=== PATIENT | male | born 1940 | race Caucasian/White ===

== ENCOUNTER 2019-01-09 07:21 | Day surgery (SDC) | payer OTHER ==
[2019-01-04 10:49] LABS: EOSINOPHILS # (AUTO) 0.3 X10'3 (0-0.9); HEMOGLOBIN 14.3 g/dl (14.0-17.9); MEAN CORPUSCULAR VOLUME 93.5 FL (78-98)
[2019-01-04 10:51] LABS: BASOPHILS # (AUTO) 0.1 X10'3 (0-0.2); BASOPHILS % (AUTO) 0.7 % (0-1); EOSINOPHILS % (AUTO) 2.2 % (0-6); LYMPHOCYTES # (AUTO) 4.1 X10'3 (1.1-4.8); LYMPHOCYTES % (AUTO) 34.3 % (21-51); MEAN CORPUSCULAR HEMOGLOBIN 31.9 PG (27.0-31.0); MEAN CORPUSCULAR HGB CONC 34.1 g/dL (33.0-36.5); MEAN PLATELET VOLUME 9.1 FL (7.4-10.4); MONOCYTES % (AUTO) 8.6 % (2-12); NEUTROPHILS # (AUTO) 6.4 X10'3 (1.8-7.7); NEUTROPHILS % (AUTO) 54.2 % (42-75); PLATELET COUNT 251 X10'3 (140-440); RED BLOOD COUNT 4.49 X10'6 (4.70-6.10); RED CELL DISTRIBUTION WIDTH 12.9 % (11.5-14.5); WHITE BLOOD COUNT 11.9 X10'3 (4.5-11.0)
[2019-01-04 11:11] LABS: ALANINE AMINOTRANSFERASE 29 U/L (12-78); ALBUMIN 3.8 G/DL (3.4-5.0); ALBUMIN/GLOBULIN RATIO 1.1 (1.1-1.5); ALKALINE PHOSPHATASE 76 IU/L (46-116); ANION GAP 8 (8-16); ASPARTATE AMINO TRANSFERASE 16 U/L (10-37); BILIRUBIN,TOTAL 0.5 MG/DL (0.1-1.0); BLOOD UREA NITROGEN 22 MG/DL (7-18); BUN/CREATININE RATIO 16.4 (5.4-32.0); CALCIUM 8.9 MG/DL (8.5-10.1); CHLORIDE 107 MMOL/L (99-107); CREATININE 1.34 MG/DL (0.60-1.10); GLUCOSE 91 MG/DL (70-104); POTASSIUM 4.1 MMOL/L (3.5-5.1); SODIUM 142 MMOL/L (135-145); TOTAL CARBON DIOXIDE 26.7 MMOL/L (24-32); TOTAL PROTEIN 7.4 G/DL (6.4-8.2); eGFR 52 ML/MIN
[2019-01-04 11:14] LABS: PARTIAL THROMBOPLASTIN TIME 28 SECONDS (22-32)
[2019-01-09] VITALS (12 sets, daily range): BP systolic 125–164; BP diastolic 64–95
[~2019-01-09] VITALS: Ht 182.9 cm; Wt 94.3 kg
[~2019-01-09 07:21] MED LIST: ACET-3067 PO; ATEN-169 PO; ATOR20TA66 PO; FLO0.4C PO; LEVO100T PO; LYR25C PO; PRAV20TA4 PO
[2019-01-09] MEDS ORDERED: nitroGLYCERIN 0.4mg SUBLingual tab SL PRN (07:55)
[2019-01-09] MEDS ORDERED: diphenhydrAMINE 25mg capsule PO PRN (08:00)
[2019-01-09] MEDS ORDERED: normal saline 1,000 ML IV SCH (08:00)
[2019-01-09] MEDS ORDERED: LEVO137T2 PO (08:05)
[2019-01-09] MEDS ORDERED: ASPI81TA30 PO (08:05)
[2019-01-09] MEDS ORDERED: ATOR80TA PO (08:05)
[2019-01-09] MEDS ORDERED: OXYC5CAP19 PO (08:05)
[2019-01-09] MEDS ORDERED: LIDOcaine 1% (10mg/ml)w/preservative injection 20ml MDV ONE (10:02)
[2019-01-09] MEDS ORDERED: fentaNYL/PF 50MCG/1 ML 2ML syringe ONE (10:02)
[2019-01-09] MEDS ORDERED: iohexol 350 MG/ML 50ML vial IV ONE ×3 (10:02→10:45)
[2019-01-09] MEDS ORDERED: midazolam 2 mg/2 ml injection ONE ×2 (10:02→10:32)
[2019-01-09] MEDS ORDERED: iohexol 350MG/ML 100ml bottle IV ONE (10:03)
[2019-01-09] MEDS ORDERED: ondansetron/PF 4mg/2ml inj IV PRN (11:45)
[2019-01-09] MEDS ORDERED: HYDROcodone/acetaminophen 5mg/325mg tablet PO PRN (11:45)
[2019-01-09] MEDS ORDERED: proCHLORperazine 10 MG/2 ml inj IV PRN (11:50)
[2019-01-09] MEDS ORDERED: OXAZEpam 15mg capsule PO PRN (11:50)
[2019-01-09] MEDS ORDERED: HYDROcodone/acetaminophen 10/325mg tab PO PRN (11:50)
== END 2019-01-09 17:30 | disposition home or self-care (01) ==
LOC: SSTAY O 07:21
PROVIDERS: ATTEND Internal Medicine Cardiovascular Disease
DX: T82.868A Thrombosis due to vascular prosthetic devices, implants and grafts, initial encounter (principal); I25.10 Atherosclerotic heart disease of native coronary artery without angina pectoris; I10 Essential (primary) hypertension; E78.5 Hyperlipidemia, unspecified; J44.9 Chronic obstructive pulmonary disease, unspecified; M41.80 Other forms of scoliosis, site unspecified; Z95.1 Presence of aortocoronary bypass graft; Z87.891 Personal history of nicotine dependence; Z86.73 Personal history of transient ischemic attack (TIA), and cerebral infarction without residual deficits; Z79.01 Long term (current) use of anticoagulants; Z79.899 Other long term (current) drug therapy; Y83.8 Other surgical procedures as the cause of abnormal reaction of the patient, or of later complication, without mention of misadventure at the time of the procedure; Y92.89 Other specified places as the place of occurrence of the external cause
CPT/HCPCS: 36415; 71046; 80053; 85025; 85610; 85730; 93005; 93459; 99152; 99153; C1769; J1644; J2001; J2250; J3010; J7030; Q0163; Q9967; A4620; A6258; C1760

== ENCOUNTER 2019-02-26 05:14 | Inpatient (IN) | payer OTHER ==
[2019-02-19 11:52] LABS: BASOPHILS # (AUTO) 0.2 X10'3 (0-0.2); BASOPHILS % (AUTO) 1.3 % (0-1); EOSINOPHILS # (AUTO) 0.2 X10'3 (0-0.9); EOSINOPHILS % (AUTO) 1.9 % (0-6); LYMPHOCYTES # (AUTO) 3.4 X10'3 (1.1-4.8); LYMPHOCYTES % (AUTO) 28.3 % (21-51); MEAN CORPUSCULAR HEMOGLOBIN 31.8 PG (27.0-31.0); MEAN CORPUSCULAR HGB CONC 33.5 g/dL (33.0-36.5); MEAN CORPUSCULAR VOLUME 94.8 FL (78-98); MEAN PLATELET VOLUME 9.8 FL (7.4-10.4); MONOCYTES # (AUTO) 0.9 X10'3 (0-0.9); MONOCYTES % (AUTO) 7.1 % (2-12); NEUTROPHILS # (AUTO) 7.3 X10'3 (1.8-7.7); NEUTROPHILS % (AUTO) 61.4 % (42-75); PRE OP HEMATOCRIT 40.9 % (42.0-52.0); PRE OP HEMOGLOBIN 13.7 g/dL (14.0-17.9); PRE OP PLATELET COUNT 259 X10'3 (140-440); RED BLOOD COUNT 4.32 X10'6 (4.70-6.10); RED CELL DISTRIBUTION WIDTH 13.9 % (11.5-14.5)
[2019-02-19 12:00] LABS: PRE OP PROTIME 10.5 SECONDS (9.0-12.0)
[2019-02-19 12:19] LABS: ALKALINE PHOSPHATASE 77 IU/L (46-116); BLOOD UREA NITROGEN 19 MG/DL (7-18); BUN/CREATININE RATIO 12.9 (5.4-32.0); CALCIUM 9.5 MG/DL (8.5-10.1); CHLORIDE 104 MMOL/L (99-107); CREATININE 1.47 MG/DL (0.60-1.10); PRE OP ALT 33 U/L (30-65); PRE OP ANION GAP 8 (8-16); PRE OP AST 28 U/L (10-37); PRE OP BILIRUB, TOTAL 0.7 MG/DL (0.0-1.0); PRE OP GLUCOSE 89 MG/DL (70-104); PRE OP POTASSIUM 4.1 MMOL/L (3.4-5.1); PRE OP SODIUM 140 MMOL/L (135-145); TOTAL CARBON DIOXIDE 28.2 MMOL/L (24-32); TOTAL PROTEIN 7.9 G/DL (6.4-8.2); eGFR 47 ML/MIN
[~2019-02-26] VITALS: Ht 180.3 cm; Wt 94.2 kg
[2019-02-26] VITALS (19 sets, daily range): BP systolic 111–148; BP diastolic 57–84
[~2019-02-26 05:14] MED LIST changes: -ACET-3067 PO; +ASPI81TA30 PO; -ATEN-169 PO; -ATOR20TA66 PO; +ATOR80TA PO; -LEVO100T PO; +LEVO137T2 PO; +LISI-600 PO; +OXYC5CAP19 PO; -PRAV20TA4 PO; +ringers solution, lacted 1,000 ML IV SCH
[2019-02-26] MEDS ORDERED: LIDOcaine 1% (10mg/ml) 2ml vial ONE (05:25)
[2019-02-26] MEDS ORDERED: metoclopramide 5 mg/ml inj IV ONE (05:30)
[2019-02-26] MEDS ORDERED: oxyCODONE SR 10mg (sust. release) tab -2 tabs (20mg) PO ONE (05:30)
[2019-02-26] MEDS ORDERED: cefazolin/dext.iso 2gm/50ml 50 ML IV ONE (05:30)
[2019-02-26] MEDS ORDERED: gabapentin 300mg capsule PO ONE (05:30)
[2019-02-26] MEDS ORDERED: VANCOMYCIN INJ 1000 MG in NORMAL SALINE 250ml IV.SOLN IV ONE (05:30)
[2019-02-26] MEDS ORDERED: tranexamic acid inj. 1,000 MG in normal saline 100 ML IV ONE (05:30)
[2019-02-26] MEDS ORDERED: vancomycin inj 1,500 MG in normal saline 300ml IV soln IV ONE (05:30)
[2019-02-26] MEDS ORDERED: acetaminophen 325mg tablet PO ONE (05:30)
[2019-02-26] MEDS ORDERED: famotidine 20mg tablet PO ONE (05:30)
[2019-02-26] MEDS ORDERED: celeCOXIB 100mg capsule PO ONE ×2 (05:30)
[2019-02-26] MEDS: potassium cl 20mEq in 1/2 NS 1,000 ML IV SCH ×3 (06:13→22:13)
[2019-02-26] MEDS ORDERED: bisacodyl 10mg suppository rectal RC PRN (06:15)
[2019-02-26] MEDS ORDERED: acetaminophen 325mg tablet PO PRN (06:15)
[2019-02-26] MEDS ORDERED: HYDROmorphone inj. 0.5 MG/0.5 ML DISP.SYRIN IV PRN (06:15)
[2019-02-26] MEDS ORDERED: HYDROcodone/acetaminophen 10/325mg tab PO PRN ×2 (06:15)
[2019-02-26] MEDS ORDERED: diphenhydrAMINE 25mg capsule PO PRN ×2 (06:15)
[2019-02-26] MEDS ORDERED: ondansetron/PF 4mg/2ml inj IV PRN ×3 (06:15→08:00)
[2019-02-26] MEDS ORDERED: HYDROmorphone 1 mg/ml syringe IV PRN (06:15)
[2019-02-26] MEDS ORDERED: magnesium hydroxide 30ml (MOM) UD suspension PO PRN (06:15)
[2019-02-26] MEDS ORDERED: ketorolac trometh. 30mg/ml inj. ONE (06:48)
[2019-02-26] MEDS ORDERED: epiNEPHrine 1 mg/ml inj ONE (06:49)
[2019-02-26] MEDS ORDERED: ROPIVAcaine 0.5% (5mg/ml) 30ml vial ONE ×2 (06:49→06:50)
[2019-02-26] MEDS ORDERED: vancomycin 1,000mg inj ONE (06:49)
[2019-02-26] MEDS ORDERED: cloNIDine hcl/PF 100mcg/ml inj ONE (06:49)
[2019-02-26] MEDS ORDERED: tetracaine 1% (10mg/ml) pres. free inj. ONE (07:02)
[2019-02-26] MEDS ORDERED: MIDAZolam 1mg/ml 10ml vial ONE (07:05)
[2019-02-26] MEDS ORDERED: fentaNYL/PF 50MCG/1 ML 2ML syringe ONE (07:05)
[2019-02-26] MEDS ORDERED: morphine /PF 1mg/ml 10ml inj. ONE (07:05)
[2019-02-26] MEDS ORDERED: LIDOcaine 2% (20mg/ml) 5ml vial ONE (07:22)
[2019-02-26] MEDS ORDERED: propofol inj 20 ML IV ONE (07:22)
[2019-02-26] MEDS ORDERED: ePHEDrine 50MG/ML INJ. ONE (07:32)
[2019-02-26] MEDS ORDERED: phenylephrine 10mg/ml inj. ONE (07:52)
[2019-02-26] MEDS ORDERED: ringers solution, lacted 1,000 ML IV SCH (07:58)
[2019-02-26] MEDS ORDERED: diphenhydrAMINE 50 mg/ml inj IV PRN (08:00)
[2019-02-26] MEDS: multivitamins, therapeutics tablet PO SCH (08:00)
[2019-02-26] MEDS: tamsulosin 0.4mg capsule PO SCH (08:00)
[2019-02-26] MEDS: pregabalin 25mg capsule PO SCH ×2 (08:00→20:06)
[2019-02-26] MEDS: levoTHYROXINE 112mcg tablet PO SCH (08:00)
[2019-02-26] MEDS ORDERED: morphine 4 MG/ML inj SYRINge IV PRN ×2 (08:00)
[2019-02-26] MEDS ORDERED: fentaNYL/PF 50MCG/1 ML 2ML syringe IV PRN ×2 (08:00)
[2019-02-26] MEDS: lisinopril 5mg tablet PO SCH (08:00)
[2019-02-26] MEDS ORDERED: labetalol 20mg/4ml (5mg/ml) syringe IV PRN (08:00)
[2019-02-26] MEDS ORDERED: enalaprilat dihydrate 2.5mg/2ml vial IV PRN (08:00)
[2019-02-26] MEDS: gabapentin 300mg capsule PO SCH ×3 (08:00→20:07)
[2019-02-26] MEDS: ascorbic acid 500mg tablet PO SCH ×2 (08:00→20:08)
[2019-02-26] MEDS: aspirin 325mg tablet PO SCH (08:30)
--- NOTE | 2019-02-26 08:45 | NUR ---
Received from OR via BED, accompanied by Anesthesiologist DR PIERRE and report given by Anesthesiolgist. PATIENT WAKING UP, DENIES PAIN, V/S WNL, NEUROVASCULAR CHECKS INTACT, TELMA DRESSING TO LEFT HIP CDI WITH LLE IN LEG BRACE, SCD ON, 28G RUE .
--- NOTE | 2019-02-26 08:45 | NUR ---
CORRECTION, 18G PIV RUE
--- NOTE | 2019-02-26 09:55 | NUR ---
PATIENT A&OX4, DENIES PAIN, V/S WNL, NEUROVASCULAR CHECKS INTACT, TELMA DRESSING TO LEFT HIP CDI WITH LLE IN LEG BRACE, SCD ON, 18G RUE . SENSATIONS T10, F/C DRAINING CLEAR YELLOW URINE. PATIENT TAKEN TO 4013A WITH ALL BELONGINGS AND HOOKED UP TO MONITORS IN ROOM AND REPORT GIVEN TO LABORATORY ENGINEER WHO HAS TAKEN OVER PATIENT CARE.
[2019-02-26] MEDS ORDERED: tranexamic acid inj. 1,000 MG in normal saline 100ml IV soln 100 ML IV ONE (13:00)
[2019-02-26] MEDS ORDERED: cefazolin/dext.iso 2gm/100ml 100 ML IV SCH (16:00)
[2019-02-26] MEDS: cefazolin/dext.iso 2gm/50ml 50 ML IV SCH ×2 (16:41→23:48)
--- NOTE | 2019-02-26 19:15 | NUR ---
Problems reprioritized. Patient report given, questions answered & plan of care reviewed with IGNACIO Lomas.
[2019-02-26] MEDS: sennosides 8.6mg tablet PO SCH (20:07)
[2019-02-26] MEDS: atorvastatin 20mg tablet PO SCH (20:08)
[2019-02-26] MEDS: oxyCODONE IR 5mg (immed. release) tablet PO PRN (20:45)
[2019-02-27] VITALS (7 sets, daily range): BP systolic 115–153; BP diastolic 54–71
[2019-02-27 04:45] LABS: BASOPHILS # (AUTO) 0.1 X10'3 (0-0.2); BASOPHILS % (AUTO) 0.9 % (0-1); EOSINOPHILS # (AUTO) 0.3 X10'3 (0-0.9); EOSINOPHILS % (AUTO) 2.5 % (0-6); HEMOGLOBIN 11.7 g/dl (14.0-17.9); LYMPHOCYTES # (AUTO) 2.9 X10'3 (1.1-4.8); LYMPHOCYTES % (AUTO) 24.7 % (21-51); MEAN CORPUSCULAR HEMOGLOBIN 32.1 PG (27.0-31.0); MEAN CORPUSCULAR HGB CONC 33.4 g/dL (33.0-36.5); MEAN PLATELET VOLUME 9.2 FL (7.4-10.4); MONOCYTES # (AUTO) 1.3 X10'3 (0-0.9); MONOCYTES % (AUTO) 10.8 % (2-12); NEUTROPHILS # (AUTO) 7.1 X10'3 (1.8-7.7); NEUTROPHILS % (AUTO) 61.1 % (42-75); PLATELET COUNT 234 X10'3 (140-440); RED BLOOD COUNT 3.65 X10'6 (4.70-6.10); RED CELL DISTRIBUTION WIDTH 13.6 % (11.5-14.5); WHITE BLOOD COUNT 11.6 X10'3 (4.5-11.0)
[2019-02-27 04:47] LABS: ANION GAP 9 (8-16); CHLORIDE 103 MMOL/L (99-107); POTASSIUM 4.6 MMOL/L (3.5-5.1); SODIUM 136 MMOL/L (135-145); TOTAL CARBON DIOXIDE 24.1 MMOL/L (24-32)
[2019-02-27] MEDS: oxyCODONE IR 5mg (immed. release) tablet PO PRN ×3 (05:32→16:27)
[2019-02-27] MEDS: potassium cl 20mEq in 1/2 NS 1,000 ML IV SCH ×2 (05:37→13:50)
--- NOTE | 2019-02-27 06:30 | NUR ---
Patient in room ORTHO 4013. I have received report from shadi PIERRE and had the opportunity to ask questions and assume patient care.
[2019-02-27] MEDS: levoTHYROXINE 112mcg tablet PO SCH (08:26)
[2019-02-27] MEDS: tamsulosin 0.4mg capsule PO SCH (08:26)
[2019-02-27] MEDS: pregabalin 25mg capsule PO SCH ×2 (08:26→19:55)
[2019-02-27] MEDS: levoTHYROXINE 25mcg tablet PO SCH (08:26)
[2019-02-27] MEDS: lisinopril 5mg tablet PO SCH (08:27)
[2019-02-27] MEDS: ascorbic acid 500mg tablet PO SCH ×2 (08:27→19:55)
[2019-02-27] MEDS: aspirin 325mg tablet PO SCH (08:27)
[2019-02-27] MEDS: multivitamins, therapeutics tablet PO SCH (08:27)
--- NOTE | 2019-02-27 08:35 | NUR ---
Student Medication Administration: For this medication-pass time frame, all medication were reviewed, dispensed, administered and documented per hospital policy by SN Blake [facility].
--- NOTE | 2019-02-27 12:10 | NUR ---
Student documentation: I have reviewed and agree with all interventions, assessments performed and documented by SN Blake [facility].
--- NOTE | 2019-02-27 18:21 | NUR ---
Student documentation: I have reviewed and agree with all interventions, assessments performed and documented by Blake ADAMS. Student Medication Administration: For this medication-pass time frame, all medication were reviewed, dispensed, administered and documented per hospital policy by Lino ADAMS. Report to Cesilia PIERRE
[2019-02-27] MEDS: sennosides 8.6mg tablet PO SCH (20:12)
[2019-02-27] MEDS: atorvastatin 20mg tablet PO SCH (20:13)
[2019-02-28 05:00] VITALS: BP 131/68
[2019-02-28] MEDS: oxyCODONE IR 5mg (immed. release) tablet PO PRN ×4 (05:21→17:03)
[2019-02-28 06:17] LABS: BASOPHILS # (AUTO) 0.1 X10'3 (0-0.2); BASOPHILS % (AUTO) 0.7 % (0-1); EOSINOPHILS # (AUTO) 0.2 X10'3 (0-0.9); EOSINOPHILS % (AUTO) 1.3 % (0-6); HEMATOCRIT 34.6 % (42.0-52.0); HEMOGLOBIN 11.8 g/dl (14.0-17.9); LYMPHOCYTES % (AUTO) 20.2 % (21-51); MEAN CORPUSCULAR HEMOGLOBIN 32.5 PG (27.0-31.0); MEAN CORPUSCULAR HGB CONC 34.2 g/dL (33.0-36.5); MEAN CORPUSCULAR VOLUME 94.9 FL (78-98); MEAN PLATELET VOLUME 9.2 FL (7.4-10.4); MONOCYTES # (AUTO) 1.8 X10'3 (0-0.9); MONOCYTES % (AUTO) 12.1 % (2-12); NEUTROPHILS # (AUTO) 9.8 X10'3 (1.8-7.7); NEUTROPHILS % (AUTO) 65.7 % (42-75); PLATELET COUNT 227 X10'3 (140-440); RED BLOOD COUNT 3.65 X10'6 (4.70-6.10); RED CELL DISTRIBUTION WIDTH 13.6 % (11.5-14.5); WHITE BLOOD COUNT 14.9 X10'3 (4.5-11.0)
--- NOTE | 2019-02-28 06:26 | NUR ---
Problems reprioritized. Patient report given, questions answered & plan of care reviewed with IGNACIO VALDEZ.
--- NOTE | 2019-02-28 06:41 | NUR ---
Patient in room ORTHO 4013. I have received report from Cesilia PIERRE and had the opportunity to ask questions and assume patient care.
[2019-02-28] MEDS: levoTHYROXINE 25mcg tablet PO SCH (08:38)
[2019-02-28] MEDS: pregabalin 25mg capsule PO SCH ×2 (08:38→20:02)
[2019-02-28] MEDS: levoTHYROXINE 112mcg tablet PO SCH (08:38)
[2019-02-28] MEDS: tamsulosin 0.4mg capsule PO SCH (08:39)
[2019-02-28] MEDS: lisinopril 5mg tablet PO SCH (08:39)
[2019-02-28] MEDS: multivitamins, therapeutics tablet PO SCH (08:39)
[2019-02-28] MEDS: ascorbic acid 500mg tablet PO SCH ×2 (08:39→20:02)
[2019-02-28] MEDS: aspirin 325mg tablet PO SCH (08:39)
[2019-02-28 10:00] VITALS: BP 126/58
--- NOTE | 2019-02-28 14:11 | NUR ---
Joint replacement consult: Pt seen by RD for written/verbal high protein ed w/ RD contact information provided. Pt reports dyslexia trouble reading and has hearing issue since no hearing aids in currently. Pt reports lower appetite though PO 50-75% avg meals. LBM 02/26 noted but RN shares pt has not had BM since admit. Pt to receive ensure pudding BIDLD and power pudding at dinner tonight; dietary notified. Will continue to monitor. Addendum: 02/28/19 at [address] Amended: Links added.
[2019-02-28 18:00] VITALS: BP 127/67
--- NOTE | 2019-02-28 18:22 | NUR ---
Problems reprioritized. Patient report given, questions answered & plan of care reviewed with Ann BIANCHI.
[2019-02-28] MEDS: sennosides 8.6mg tablet PO SCH (20:02)
[2019-02-28] MEDS: atorvastatin 20mg tablet PO SCH (20:02)
[2019-02-28 22:00] VITALS: BP 125/66
[2019-03-01 05:20] LABS: BASOPHILS # (AUTO) 0.1 X10'3 (0-0.2); BASOPHILS % (AUTO) 0.7 % (0-1); EOSINOPHILS # (AUTO) 0.2 X10'3 (0-0.9); EOSINOPHILS % (AUTO) 1.6 % (0-6); HEMATOCRIT 32.7 % (42.0-52.0); HEMOGLOBIN 11.3 g/dl (14.0-17.9); LYMPHOCYTES # (AUTO) 2.9 X10'3 (1.1-4.8); LYMPHOCYTES % (AUTO) 19.8 % (21-51); MEAN CORPUSCULAR HEMOGLOBIN 32.9 PG (27.0-31.0); MEAN CORPUSCULAR HGB CONC 34.5 g/dL (33.0-36.5); MEAN CORPUSCULAR VOLUME 95.3 FL (78-98); MEAN PLATELET VOLUME 8.7 FL (7.4-10.4); MONOCYTES # (AUTO) 1.5 X10'3 (0-0.9); MONOCYTES % (AUTO) 10.4 % (2-12); NEUTROPHILS # (AUTO) 9.8 X10'3 (1.8-7.7); NEUTROPHILS % (AUTO) 67.5 % (42-75); PLATELET COUNT 238 X10'3 (140-440); RED BLOOD COUNT 3.43 X10'6 (4.70-6.10); RED CELL DISTRIBUTION WIDTH 13.3 % (11.5-14.5); WHITE BLOOD COUNT 14.5 X10'3 (4.5-11.0)
[2019-03-01 06:00] VITALS: BP 115/58
--- NOTE | 2019-03-01 06:13 | NUR ---
Problems reprioritized. Patient report given, questions answered & plan of care reviewed with IGNACIO Cheng.
--- NOTE | 2019-03-01 06:42 | NUR ---
Patient in room ORTHO 4013. I have received report from Ann Johnson RN and had the opportunity to ask questions and assume patient care.
[2019-03-01] MEDS: levoTHYROXINE 25mcg tablet PO SCH (07:08)
[2019-03-01] MEDS: levoTHYROXINE 112mcg tablet PO SCH (07:08)
[2019-03-01] MEDS: ascorbic acid 500mg tablet PO SCH (07:08)
[2019-03-01] MEDS: aspirin 325mg tablet PO SCH (07:08)
[2019-03-01] MEDS: multivitamins, therapeutics tablet PO SCH (07:08)
[2019-03-01] MEDS: lisinopril 5mg tablet PO SCH (07:08)
[2019-03-01] MEDS: tamsulosin 0.4mg capsule PO SCH (07:08)
[2019-03-01] MEDS: pregabalin 25mg capsule PO SCH (07:08)
[2019-03-01] MEDS: oxyCODONE IR 5mg (immed. release) tablet PO PRN (07:09)
[2019-03-01] MEDS ORDERED: docusate sod 100mg capsule PO SCH (08:00)
[2019-03-01 10:00] VITALS: BP 99/55
--- NOTE | 2019-03-01 10:50 | NUR ---
Safe DC. left with radha cargo. all items with patent.
== END 2019-03-01 11:52 | DRG 470 ==
LOC: PAS IN 05:14 → EDSTATUS 07:30 → ORTHO 4S 10:00
PROVIDERS: ADMIT Orthopaedic Surgery; ATTEND Orthopaedic Surgery
PROC: 0SRB06A Replacement of Left Hip Joint with Oxidized Zirconium on Polyethylene Synthetic Substitute, Uncemented, Open Approach (ICD-10-PCS; principal; 2019-02-26 07:05)
DX: M16.12 Unilateral primary osteoarthritis, left hip (principal); D62 Acute posthemorrhagic anemia; I69.359 Hemiplegia and hemiparesis following cerebral infarction affecting unspecified side; Z96.641 Presence of right artificial hip joint; F32.9 Major depressive disorder, single episode, unspecified; N18.3 Chronic kidney disease, stage 3 (moderate); I25.10 Atherosclerotic heart disease of native coronary artery without angina pectoris; N40.0 Benign prostatic hyperplasia without lower urinary tract symptoms; E78.5 Hyperlipidemia, unspecified; E03.9 Hypothyroidism, unspecified; I12.9 Hypertensive chronic kidney disease with stage 1 through stage 4 chronic kidney disease, or unspecified chronic kidney disease; I25.2 Old myocardial infarction; Z79.82 Long term (current) use of aspirin; Z95.1 Presence of aortocoronary bypass graft; Z98.1 Arthrodesis status; Z85.46 Personal history of malignant neoplasm of prostate; Z79.899 Other long term (current) drug therapy
CPT/HCPCS: 36415; 72170; 80051; 80053; 82948; 84443; 85025; 85610; 85730; 86885; 86900; 86901; 87081; 97110; 97116; 97161; 97530; A4615; A7000; C1758; C1776; G0378; J0171; J0735; J1170; J1885; J2001; J2250; J2270; J2370; J2704; J2765; J2795; J3010; J3370; J3480; J7120

== ENCOUNTER 2019-04-11 17:03 | Emergency (ER) | payer MEDICARE, MEDICAID ==
[~2019-04-11] VITALS: Ht 182.9 cm; Wt 100.0 kg
[~2019-04-11 17:03] MED LIST changes: -ringers solution, lacted 1,000 ML IV SCH
[2019-04-11] MEDS ORDERED: morphine 4 MG/ML inj SYRINge IV PRN (17:30)
[2019-04-11] MEDS ORDERED: ondansetron/PF 4mg/2ml inj IV ONE (17:30)
[2019-04-11] MEDS ORDERED: normal saline 1000ML IV soln IVB ONE (17:30)
--- NOTE | 2019-04-11 17:50 | NUR ---
Attempted IV access to the right wrist without success, IV cath tip intact, dressing applied and pressure held for a few minutes. Pt will have another nurse attempt IV access and lab draw.
[2019-04-11 18:16] LABS: BASOPHILS # (AUTO) 0.1 X10'3 (0-0.2); BASOPHILS % (AUTO) 0.9 % (0-1); EOSINOPHILS # (AUTO) 0.1 X10'3 (0-0.9); EOSINOPHILS % (AUTO) 1.2 % (0-6); HEMATOCRIT 39.1 % (42.0-52.0); HEMOGLOBIN 13.2 g/dl (14.0-17.9); LYMPHOCYTES # (AUTO) 1.6 X10'3 (1.1-4.8); MEAN CORPUSCULAR HEMOGLOBIN 31.9 PG (27.0-31.0); MEAN CORPUSCULAR HGB CONC 33.7 g/dL (33.0-36.5); MEAN CORPUSCULAR VOLUME 94.8 FL (78-98); MONOCYTES # (AUTO) 0.9 X10'3 (0-0.9); MONOCYTES % (AUTO) 7.9 % (2-12); NEUTROPHILS # (AUTO) 8.8 X10'3 (1.8-7.7); PLATELET COUNT 221 X10'3 (140-440); RED BLOOD COUNT 4.12 X10'6 (4.70-6.10); WHITE BLOOD COUNT 11.6 X10'3 (4.5-11.0)
[2019-04-11 18:29] LABS: ALANINE AMINOTRANSFERASE 28 U/L (12-78); ALBUMIN 3.7 G/DL (3.4-5.0); ALBUMIN/GLOBULIN RATIO 1.1 (1.1-1.5); ALKALINE PHOSPHATASE 84 IU/L (46-116); ANION GAP 11 (8-16); ASPARTATE AMINO TRANSFERASE 19 U/L (10-37); BILIRUBIN,TOTAL 0.6 MG/DL (0.1-1.0); BLOOD UREA NITROGEN 16 MG/DL (7-18); BUN/CREATININE RATIO 13.2 (5.4-32.0); CALCIUM 8.4 MG/DL (8.5-10.1); CHLORIDE 105 MMOL/L (99-107); CREATININE 1.21 MG/DL (0.60-1.10); GLUCOSE 99 MG/DL (70-104); LIPASE 167 U/L (73-393); POTASSIUM 3.9 MMOL/L (3.5-5.1); SODIUM 138 MMOL/L (135-145); TOTAL CARBON DIOXIDE 21.9 MMOL/L (24-32); eGFR 58 ML/MIN
--- NOTE | 2019-04-11 18:47 | NUR ---
ALDA FROM [facility] CALLED FOR REPORT ON PT. .
--- NOTE | 2019-04-11 19:25 | NUR ---
PATIENT TO CT SCAN
[2019-04-11 19:36] LABS: CLARITY,URINE CLEAR (Clear); COLOR,URINE YELLOW (Yellow); GLUCOSE, URINE NEGATIVE (Neg); KETONES,URINE NEGATIVE (Neg); LEUKOCYTE ESTERASE ,URINE NEGATIVE (Neg); NITRITES, URINE NEGATIVE (Neg); OCCULT BLOOD,URINE NEGATIVE (Neg); PH,URINE 5.5 (4.8-8.0); PROTEIN,URINE NEGATIVE (Neg); UROBILINOGEN,URINE 0.2 E.U/dL (0.2-1.0)
[2019-04-11 19:37] LABS: UA COLLECTION TYPE CLN CATCH MIDSTREAM
[2019-04-11 20:25] VITALS: BP 120/65
== END 2019-04-11 20:35 | disposition home or self-care (01) ==
LOC: ER 17:05
DX: R10.11 Right upper quadrant pain (principal); R11.0 Nausea; I25.10 Atherosclerotic heart disease of native coronary artery without angina pectoris; E78.00 Pure hypercholesterolemia, unspecified; I10 Essential (primary) hypertension; G47.30 Sleep apnea, unspecified; K21.9 Gastro-esophageal reflux disease without esophagitis; E03.9 Hypothyroidism, unspecified; G89.29 Other chronic pain; Z98.890 Other specified postprocedural states; Z86.14 Personal history of Methicillin resistant Staphylococcus aureus infection; Z79.82 Long term (current) use of aspirin; Z79.899 Other long term (current) drug therapy
CPT/HCPCS: 36415; 74176; 76700; 80053; 81003; 83690; 85025; 96374; 99284; J2405; J7030

== ENCOUNTER 2022-12-20 11:09 | Outpatient (CLI) | payer MEDICARE, MEDICAID ==
[~2022-12-20 11:09] MED LIST changes: -LISI-600 PO; +LISI20TA28 PO
== END 2022-12-20 23:59 | disposition home or self-care (01) ==
LOC: RAD 11:09
PROVIDERS: ATTEND Family Medicine
DX: K59.00 Constipation, unspecified (principal); M47.816 Spondylosis without myelopathy or radiculopathy, lumbar region; R10.31 Right lower quadrant pain; Z96.643 Presence of artificial hip joint, bilateral
CPT/HCPCS: 74176

== ENCOUNTER 2024-01-11 09:10 | Outpatient (CLI) | payer MEDICARE, OTHER ==
[~2024-01-11 09:10] MED LIST changes: -OXYC5CAP19 PO; +OXYC5CAP22 PO
== END 2024-01-11 23:59 | disposition home or self-care (01) ==
LOC: RAD 09:10
PROVIDERS: ATTEND Family Medicine
DX: R13.10 Dysphagia, unspecified (principal)
CPT/HCPCS: 74230

== ENCOUNTER 2024-09-26 09:50 | Emergency (ER) | payer OTHER, MEDICARE, MEDICAID ==
[~2024-09-26] VITALS: Ht 180.3 cm; Wt 90.9 kg
[~2024-09-26 09:50] MED LIST changes: +ATOR-429 PO; -ATOR80TA PO; -FLO0.4C PO; +TAMS-55 PO
[2024-09-26 09:57] VITALS: TEMP 98
[2024-09-26 11:05] LABS: BASOPHILS # (AUTO) 0.1 X10'3 (0-0.2); EOSINOPHILS # (AUTO) 0.1 X10'3 (0-0.9); EOSINOPHILS % (AUTO) 0.8 % (0-6); HEMATOCRIT 44.6 % (42.0-52.0); HEMOGLOBIN 14.7 g/dl (14.0-17.9); LYMPHOCYTES # (AUTO) 3.3 X10'3 (1.1-4.8); MEAN CORPUSCULAR HEMOGLOBIN 30.7 PG (27.0-31.0); MONOCYTES # (AUTO) 1.1 X10'3 (0-0.9); MONOCYTES % (AUTO) 8.6 % (2-12); NEUTROPHILS # (AUTO) 8.1 X10'3 (1.8-7.7); NEUTROPHILS % (AUTO) 63.6 % (42-75); PLATELET COUNT 259 X10'3 (140-440); RED CELL DISTRIBUTION WIDTH 13.5 % (11.5-14.5); WHITE BLOOD COUNT 12.8 X10'3 (4.5-11.0)
[2024-09-26 11:12] LABS: ANION GAP 10 (8-16); BLOOD UREA NITROGEN 39 MG/DL (7-18); BUN/CREATININE RATIO 18.1 (10.0-20.0); CALCIUM 9.8 MG/DL (8.5-10.1); CHLORIDE 104 MMOL/L (99-107); CREATININE 2.16 MG/DL (0.60-1.10); GLUCOSE 114 MG/DL (70-104); POTASSIUM 3.8 MMOL/L (3.5-5.1); SODIUM 139 MMOL/L (135-145); TOTAL CARBON DIOXIDE 25.5 MMOL/L (24-32); eCRCL 29 ML/MIN; eGFR 29 ML/MIN
--- NOTE | 2024-09-26 13:26 | RADIOLOGY REPORT ---
Exam: CT CT ABDOMEN PELVIS History: abd pain, rebound Comparison Study: CT CT ABDOMEN PELVIS on DOS: 12/20/22, CT ABDOMEN PELVIS on DOS: 04/11/19 TECHNIQUE: Multidetector CT of the abdomen and pelvis without IV contrast. Axial, coronal and sagitta l multiplanar reformats were obtained from the axial data set by the technologist. Radiation Dose Information: CT Dose: CTDI volume is 28.24 mGy. Dose-length product is 1394.43 mGy*cm FINDINGS: The lung bases are clear. Partially visualized heart is unremarkable. Liver, spleen, gallbladder, pancreas and adrenal glands are unremarkable. Kidneys and Visualized ureters are unremarkable. Limited evaluation of intrapelvic structures due to streak artifact from bilateral hip prosthesis. Urinary bladder is not well-visualized. The prostate is not well-visualized with prosthetic brachytherapy noted. Mild gastric wall thickening which is most likely from inadequate distension. Small bowel loops are unremarkable. Appendix is not definitely visualized with the cecum terminating within the pelvis. Mo derate to large amount of fecal material within the colon with decompression of the distal ascending colon without significant wall thickening. No evidence of intraperitoneal free air or free fluid. No evidence of aortic aneurysm. [id number] atherosclerotic calcification of the aorta and bila teral iliacs. No significant lymphadenopathy. Small fat containing left inguinal hernia. Tiny fat containing umbilical hernia. No destructive osseo us lesions are noted. Severe degenerative changes of the lumbar spine. Bilateral total hip replaceme nt with streak artifact from hardware limiting evaluation of the adjacent structures. IMPRESSION: Limited evaluation of the intrapelvic structures due to streak artifact from bilateral hip prosthesis Moderate to large amount of fecal material within the colon.
[2024-09-26] MEDS: sennosides/docusate sodium tablet PO STA (14:37)
[2024-09-26] MEDS: polyethylene glycol 3350 17gm powd pack PO STA (14:37)
--- NOTE | 2024-09-26 14:54 | Physician Documentation ---
History of Present Illness ~ Chief Complaint: Constipation Stated Complaint: ABD PAIN Time Seen by MD: 12:41 Primary Medical Doctor: Melecio GARZA Mode of Arrival: POV HPI Patient is seen today with complaints of not having had a bowel movement in three days and having some abdominal discomfort. Patient states he does struggle with constipation off and on and usually has medication at home that works including milk of magnesia magnesia and some of the brown pill that he is not quite sure the name of but likely senna. Patient denies any blood in his stool or urine and denies any nausea or vomiting or diarrhea and denies any chest pain or shortness of breath. Patient denies any fevers or chills. He has no other concern or complaint at this time. Medication Reconciliation Allergies: Coded Allergies: No Known Allergies (Unverified , 02/19/19) Scheduled Aspirin (Aspirin), 1 TAB PO DAILY, (Reported) Atorvastatin Calcium* (Lipitor*), 1 TABLET PO HS, (Reported) Levothyroxine Sodium (Levothyroxine Sodium), 1 TAB PO DAILY, (Reported) Lisinopril (Lisinopril), 5 MG PO DAILY, (Reported) Oxycodone HCl (Oxycodone HCl), 1 CAP PO HS, (Reported) Pregabalin* (Lyrica*), 25 MG PO BID, (Reported) Tamsulosin Hcl* (Flomax*), 1 CAP PO DAILY, (Reported) Past Medical History Past Medical History: Coronary Artery Disease, High Cholesterol, Hypertension, Sleep Apnea, GERD, BPH, Hypothyroidism, Chronic Back Pain, MRSA Abscess, *CANCER* Past Surgical History: orthopedic surgeries Other Past Family History: Father: [place], brother: [place] Alcohol Use: Occasionally Drug Use: none Lives with: Spouse Lives In: Home Occupation: retired Review of Systems Constitutional: Denies: chills, fever, weakness Eyes: Denies: pain, blurred vision ENT: Denies: ear pain, nose pain, throat pain, mouth pain Respiratory: Denies: cough, shortness of breath Cardiovascular: Denies: chest pain, palpitations Gastrointestinal: Denies: abdominal pain, nausea, vomiting Genitourinary: Denies: burning, dysuria Male Genitalia: Denies: penile discharge, testicular pain Neurological: Denies: headache, dizziness Musculoskeletal: Denies: pain, swelling Integumentary: Denies: rash, lesions Allergic/Immunologic: Denies: hives, itching Hematologic/Lymphatic: Denies: no symptoms reported Psychiatric: Denies: depression, anxiety Physical Exam Vital Signs: Temperature: 98.0, Source: Temporal, Heart Rate: 89, Respiratory Rate: 18, BP: 142/75, Pulse Oximetry: 98, Weight: 90.900 Oxygen Flow Rate: 0 Physical Exam General: Awake and Alert, no acute distress. HEENT: Conjunctiva pink, Sclera clear, Mucus Membranes moist. Neck: Supple without masses and tenderness. Resp: Unlabored. Lungs clear to auscultation bilaterally. Heart: Regular Rate and rhythm, normal S1 and S2 without murmur, rub or gallop. Abdomen: Patient on exam has abdomen that is soft and nondistended, mild guarding with tenderness to palpation diffusely with rebound tenderness with no masses. Extremities: No cyanosis,clubbing or edema. Skin: Warm and Dry. Progress Results/Orders Results/Orders Orders - JOLIE AREVALO PAC Urinalysis, Cult If Indicated (09/26/24 12:30) Ct Abdomen Pelvis (09/26/24 13:01) Completed Orders - JOLIE AREVALO PAC Ct Abdomen Pelvis (09/26/24 13:01) Sennosides/Docusate Sodium Tab (Senna-S (09/26/24 14:15) Polyethylene Glycol 3350 Pkt (Miralax Pa (09/26/24 14:15) Medications Received in ER Medications (Trade) Dose Ordered Sig/Dary Route PRN Reason Start Time Stop Time Status Last Admin Dose Admin (Senna-S tablet) 2 tab ONCE STAT PO 09/26/24 14:15 09/26/24 14:20 DC 09/26/24 14:37 2 TAB (Miralax packet) 17 gm ONCE STAT PO 09/26/24 14:15 09/26/24 14:20 DC 09/26/24 14:37 17 GM Vital Signs 09/26/24 09/26/24 09/26/24 09:57 14:10 14:12 Temp 98.0 Pulse 70 89 Resp 16 17 18 B/P (MAP) 139/76 142/75 (97) Pulse Ox 95 98 O2 Flow Rate 0 0 Laboratory Tests Test 09/26/24 10:54 White Blood Count 12.8 H Red Blood Count 4.80 Hemoglobin 14.7 Hematocrit 44.6 Mean Corpuscular Volume 93.0 Mean Corpuscular Hemoglobin 30.7 Mean Corpuscular Hemoglobin Concent 33.0 Red Cell Distribution Width 13.5 Platelet Count 259 Mean Platelet Volume 9.0 Neutrophils (%) (Auto) 63.6 Lymphocytes (%) (Auto) 26.0 Monocytes (%) (Auto) 8.6 Eosinophils (%) (Auto) 0.8 Basophils (%) (Auto) 1.0 Neutrophils # (Auto) 8.1 H Lymphocytes # (Auto) 3.3 Monocytes # (Auto) 1.1 H Eosinophils # (Auto) 0.1 Basophils # (Auto) 0.1 CBC Comment Sodium Level 139 Potassium Level 3.8 Chloride Level 104 Carbon Dioxide Level 25.5 Anion Gap 10 Blood Urea Nitrogen 39 H Creatinine 2.16 H Estimated GFR/1.73 m2 29 BUN/Creatinine Ratio 18.1 Glucose Level 114 H Calcium Level 9.8 Albumin 4.0 Chemistry Comments EKG/XRAY/CT/US/VASC/MRI CT : Impression CAT SCAN Patient: EMMETT REBOLLAR Medical Record: [id number] [facility] : 1940, Age: 83 Sex: Male Location: ER Patient Status: REG ER Service Date/Time: 09/26/24/ 1300 Ordering Physician: JOLIE AREVALO PAC Exam: CT ABDOMEN PELVIS Exam: CT CT ABDOMEN PELVIS History: abd pain, rebound Comparison Study: CT CT ABDOMEN PELVIS on DOS: 12/20/22, CT ABDOMEN PELVIS on DOS: 04/11/19 TECHNIQUE: Multidetector CT of the abdomen and pelvis without IV contrast. Axial, coronal and sagittal multiplanar reformats were obtained from the axial data set by the technologist. Radiation Dose Information: CT Dose: CTDI volume is 28.24 mGy. Dose-length product is 1394.43 mGy*cm FINDINGS: The lung bases are clear. Partially visualized heart is unremarkable. Liver, spleen, gallbladder, pancreas and adrenal glands are unremarkable. Kidneys and Visualized ureters are unremarkable. Limited evaluation of intrapelvic structures due to streak artifact from bilateral hip prosthesis. Urinary bladder is not well-visualized. The prostate is not well-visualized with prosthetic brachytherapy noted. Mild gastric wall thickening which is most likely from inadequate distension. Small bowel loops are unremarkable. Appendix is not definitely visualized with the cecum terminating within the pelvis. Moderate to large amount of fecal material within the colon with decompression of the distal ascending colon without significant wall thickening. No evidence of intraperitoneal free air or free fluid. No evidence of aortic aneurysm. [id number] atherosclerotic calcification of the aorta and bilateral iliacs. No significant lymphadenopathy. Small fat containing left inguinal hernia. Tiny fat containing umbilical hernia. No destructive osseous lesions are noted. Severe degenerative changes of the lumbar spine. Bilateral total hip replacement with streak artifact from hardware limiting evaluation of the adjacent structures. IMPRESSION: Limited evaluation of the intrapelvic structures due to streak artifact from bilateral hip prosthesis Moderate to large amount of fecal material within the colon. Electronically Signed by:ROSAURA HARRIS DO Date & Time: 09/26/24 1324 Dictated by: ROSAURA HARRIS DO Dictation date and time: 09/26/24 1324 Primary Care Provider: NO PRIMARY CARE PROVIDER cc: JOLIE AREVALO PAC ~ Medical Decision Making Findings Patient is seen today with complaints of not having had a bowel movement in three days and having some abdominal discomfort. Patient states he does struggle with constipation off and on and usually has medication at home that works including milk of magnesia magnesia and some of the brown pill that he is not quite sure the name of but likely senna. Patient denies any blood in his stool or urine and denies any nausea or vomiting or diarrhea and denies any chest pain or shortness of breath. Patient denies any fevers or chills. He has no other concern or complaint at this time. Patient was given dose of senna tablets x2 by mouth in the ED along with MiraLax by mouth today. Shared decision-making utilized with the patient today. Patient states he does have prescriptions of milk of magnesia and senna at home which patient will continue taking as needed to have desired bowel movement. Patient will follow up with primary care in 1-3 days if no better as needed sooner. Return to ED with any worsening, concerning or changing symptoms. Departure Disposition: 01 HOME / SELF CARE / HOMELESS Impression: Primary Impression: Constipation Qualified Codes: K59.00 - Constipation, unspecified Condition: Stable Discharge Instructions: Constipation, Adult Additional Instructions: Patient was given dose of senna tablets x2 by mouth in the ED along with MiraLax by mouth today. Shared decision-making utilized with the patient today. Patient states he does have prescriptions of milk of magnesia and senna at home which patient will continue taking as needed to have desired bowel movement. Patient will follow up with primary care in 1-3 days if no better as needed sooner. Return to ED with any worsening, concerning or changing symptoms. Referrals: NO PRIMARY CARE PROVIDER (PCP) Prescriptions Sennosides/Docusate Sodium (Senna Plus 8.6-50 mg Tablet) 8.6 Mg-50 Mg Tablet 2 TAB PO TID for 10 Days, #60 TAB 0 Refills Prov: JOLIE AREVALO 09/26/24 Signature Scribe Signature: No scribe Attestation: No scribe JOLIE AREVALO September 26, 2024 14:54
[2024-09-26] MEDS ORDERED: SENN-302 PO (15:02)
[2024-09-26 15:08] VITALS: BP 142/75; PULSE 94; RESP 18; O2SAT 99
== END 2024-09-26 15:09 | disposition home or self-care (01) ==
LOC: ER 09:50
DX: K59.00 Constipation, unspecified (principal); G47.30 Sleep apnea, unspecified; E78.00 Pure hypercholesterolemia, unspecified; E03.9 Hypothyroidism, unspecified; I10 Essential (primary) hypertension; I25.10 Atherosclerotic heart disease of native coronary artery without angina pectoris; Z79.82 Long term (current) use of aspirin
CPT/HCPCS: 36415; 74176; 80048; 85025; 99284